=== PATIENT | female | born 1950 | race Caucasian/White ===

== ENCOUNTER 2016-09-14 05:52 | Emergency (ER) | payer OTHER ==
[~2016-09-14] VITALS: Ht 157.5 cm; Wt 79.4 kg
--- NOTE | ~2016-09-14 | EKG ---
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 : 1950 Requested By: Se Cancino Order Number: [id number] MD: Branden Lopez Measurements Intervals [place] Rate: 59 P: 23 AR: 158 QRS: 33 QRSD: 101 T: 20 QT: 430 QTc: 426 Interpretive Statements Sinus rhythm Borderline low voltage, extremity leads Nonspecific ST segment abnormality Compared to ECG 06/13/2003 15:23:53 No significant change was found Electronically Signed On 09-15-2016 8:52:49 CDT by Branden Lopez [email or web address] <ELECTRONICALLY SIGNED> By: Branden Lopez MD, [facility] 09/15/16 0852 8 8 Branden Lopez MD, [facility] /EPI
[2016-09-14] MEDS ORDERED: VITAMIN D 5050000 I1 PO (06:05)
[2016-09-14] MEDS ORDERED: ASPIR 8181 MG PO (06:05)
[2016-09-14] MEDS ORDERED: LEVOTHYROXIN0.112 M1 PO (06:06)
[2016-09-14] MEDS ORDERED: CLONAZEPAM 1 MG1 M1 PO (06:07)
[2016-09-14] MEDS ORDERED: NEXIUM40 MG PO (06:08)
[2016-09-14] MEDS ORDERED: CARBAMAZEPINE200 M2 PO (06:08)
[2016-09-14] MEDS ORDERED: LASIX 40 MG TAB40 M2 PO (06:08)
[2016-09-14] MEDS ORDERED: POTASSIUM20 PO (06:08)
[2016-09-14] MEDS ORDERED: NORVASC5 MG PO (06:09)
[2016-09-14] MEDS ORDERED: BENAZEPRIL HCL20 MG PO (06:09)
[2016-09-14] MEDS ORDERED: PREMARIN0.625 MG PO (06:10)
[2016-09-14] MEDS ORDERED: AMITRIPTYLINE H25 M2 PO (06:10)
[2016-09-14] MEDS ORDERED: ZANAFLEX4 MG PO (06:11)
[2016-09-14] MEDS ORDERED: LYRICA 50 MG50 MG PO (06:12)
[2016-09-14] MEDS ORDERED: TIZANIDINE HCL4 MG PO (06:12)
[2016-09-14] MEDS ORDERED: FLEXERIL PO (06:12)
[2016-09-14 06:34] LABS: ABSOLUTE NEUTROPHILS 5.7 thou/uL (1.4-8.2); BASOPHILS 0.3 % (0.0-2.0); EOSINOPHILS 1.1 % (0.0-3.0); HEMATOCRIT 27.7 % (37.0-47.0); HEMOGLOBIN 8.9 gm/dL (12.0-15.0); LYMPHOCYTES 14.2 % (24.0-44.0); MCH 28.8 pg (26.0-34.0); MCHC 32.3 g/dL (28.0-37.0); MCV 89.2 fL (80.0-100.0); MONOCYTES 11.4 % (1.0-8.0); PLATELET COUNT 203 thou/uL (150-400); RDW 18.7 % (10.5-14.5); WBC 7.8 thou/uL (4.0-11.0)
[2016-09-14 06:35] LABS: MANUAL DIFF NO
[2016-09-14 06:44] LABS: ANION GAP 8 mmol/L (7-16); BUN 25 mg/dL (7-18); CALCIUM 7.2 mg/dL (8.5-10.1); CHLORIDE 107 mmol/L (98-107); CO2 27 mmol/L (21-32); CREATININE 0.7 mg/dL (0.6-1.0); GLUCOSE 85 mg/dL (74-106); POTASSIUM 3.9 mmol/L (3.5-5.1); SODIUM 142 mmol/L (136-145)
[2016-09-14 06:47] LABS: URINE BILIRUBIN NEGATIVE (Negative); URINE BLOOD NEGATIVE (Negative); URINE COLOR YELLOW; URINE GLUCOSE-RANDOM* NEGATIVE (Negative); URINE KETONES NEGATIVE (Negative); URINE NITRITE NEGATIVE (Negative); URINE PROTEIN (DIPSTICK) NEGATIVE (Negative); URINE UROBILINOGEN 0.2 E.U./dl (0.2-1.0)
[2016-09-14 07:00] LABS: ALKALINE PHOSPHATASE 73 U/L (46-116); CK-MB MASS 0.7 ng/mL (<0.5-3.6); MAGNESIUM 1.4 mg/dL (1.8-2.4); NT-PRO BRAIN NAT PEPTIDE 180 pg/mL (<300); SGOT 23 U/L (15-37); SGPT 17 U/L (30-65); TOTAL BILIRUBIN 0.2 mg/dL (<0.1-1.0); TOTAL PROTEIN 5.5 g/dL (6.4-8.2); TROPONIN-I < 0.04 ng/mL (<0.04-0.07)
[2016-09-14] MEDS ORDERED: MAG-OXIDE400 MG PO (08:30)
[2016-09-14 09:42] VITALS: BP 107/51
== END 2016-09-14 09:15 | disposition home or self-care (01) ==
LOC: ER 05:52
PROVIDERS: Emergency Medicine
DX: T40.2X5A Adverse effect of other opioids, initial encounter (principal); R53.1 Weakness; D64.89 Other specified anemias; E83.42 Hypomagnesemia; R39.2 Extrarenal uremia; Z86.73 Personal history of transient ischemic attack (TIA), and cerebral infarction without residual deficits; G89.29 Other chronic pain; I10 Essential (primary) hypertension; Z98.890 Other specified postprocedural states; Z88.1 Allergy status to other antibiotic agents; Z88.0 Allergy status to penicillin; Z88.8 Allergy status to other drugs, medicaments and biological substances; W18.39XA Other fall on same level, initial encounter; Y93.89 Activity, other specified; Y92.89 Other specified places as the place of occurrence of the external cause; Y99.8 Other external cause status